=== PATIENT | female | born 1940 | race Caucasian/White ===

== ENCOUNTER → 2018-07-27 11:31 | Outpatient (CLI) | payer MEDICARE, OTHER, SELFPAY ==
--- NOTE | 2018-07-27 | DI.MRI.S_ITS ---
PROCEDURE: MR ANKLE LT WO CON INDICATIONS: CHRONIC LEFT ANKLE PAIN TECHNIQUE: Noncontrast sagittal T1 spin echo and T2 fast spin echo with fat saturation, axial proton density fast spin echo and T2 fast spin echo with fat saturation, coronal T1 spin echo and T2 fast spin echo with fat saturation through the ankle/hindfoot. COMPARISON: None. FINDINGS: Image quality: Excellent. Bones and joints: No bone marrow contusions or fractures. No hindfoot coalitions. No osteochondral injuries of the talar dome. Well-defined plantar calcaneal enthesophyte is seen. 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 No pathologic joint effusions. Medial structures: There is low-grade tenosynovitis involving all 3 flexor tendons mildly fluid distended tendon sheath. No evidence of flexor tendon tear. The posterior tibial neurovascular bundle appears normal within the tarsal tunnel, without extrinsic mass effect. The deep layer (anterior and posterior tibiotalar ligaments) and superficial layer (tibionavicular, tibiospring, and tibiocalcaneal ligaments) of the deltoid ligament appear normal. The spring ligament components (superomedial calcaneonavicular, medioplantar oblique calcaneonavicular, and inferoplantar longitudinal ligaments) are intact. Lateral structures: The anterior talofibular, calcaneofibular, and posterior talofibular ligaments appear intact. More superiorly, the anterior and posterior tibiofibular ligaments appear intact, as is the intermalleolar ligament. The tibiofibular syndesmosis is normal in width at 2 mm or less. There is low-grade tenosynovitis involving the peroneus tendons with small amount of fluid distending tendon sheaths. Adjacent bony peroneal tubercle and retrotrochlear prominence are normal in size. The sinus tarsi demonstrates normal fatty signal, without edema, fibrosis, or cyst formation. Visualized sinus tarsi components (cervical ligament, interosseous talocalcaneal ligament, roots of the inferior extensor retinaculum) appear normal. The calcaneonavicular and calcaneocuboid components of the bifurcate ligament appear intact. The dorsal calcaneocuboid ligament appears intact. Anterior structures: The tibialis anterior, extensor hallucis longus, and extensor digitorum longus tendons appear intact. The dorsal talonavicular ligament appears intact. Posterior and plantar structures: Achilles tendon is intact. Medial and lateral bands of the plantar fascia are of normal thickness. No abductor digiti quinti muscle atrophy to suggest Reyes neuropathy. IMPRESSION: 1. 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 No marrow edema. No fracture or dislocation. No discrete osteochondral lesion. 2. Mild tenosynovitis involving the flexor tendons and peroneus tendons. No evidence of ankle tendon rupture. Ankle ligaments are grossly intact. 3. Well-defined plantar calcaneal enthesophyte. No gross abnormality is seen in plantar aponeurosis. Dictated by: Maurizio Garcia M.D. on 07/27/2018 at 14:51 Approved by: Maurizio Garcia M.D. on 07/27/2018 at 15:01
== END ==
PROVIDERS: Family Provider Family Medicine; PCP Family Medicine; Visit Provider Podiatrist
DX: M25.572 Pain in left ankle and joints of left foot (principal); M19.072 Primary osteoarthritis, left ankle and foot; M65.872 Other synovitis and tenosynovitis, left ankle and foot; G89.29 Other chronic pain
CPT/HCPCS: 73721

== ENCOUNTER → 2019-05-18 07:26 | Outpatient (CLI) | payer MEDICARE, OTHER, SELFPAY ==
--- NOTE | 2019-05-18 08:45 | P.PCN_ITS ---
Cardiac Stress Test Report Referral & Results Date Patient Seen: 05/18/19 Time Patient Seen: 08:30 Requesting provider: Haseeb Bello Indication: Cardiomegaly Rest ECG: Occasional PAC/PVCs Procedure Note: After both written and verbal informed consent the patient had an IV started by the diagnostic imaging RN, and then was hooked up to the radha Letao monitoring system. The Lexiscan material, and then the Cardiolite tracer, were administered sequentially. An additional 3 min was spent monitoring the patient while supine on the gurney. The patient had a normal response to all infused materials. Impression: Successful Thelma protocol. Will await perfusion imaging. Please note: Actual ECG tracings can be found in the PACS system.
--- NOTE | 2019-05-19 18:22 | DI.NM.S_ITS ---
DATE OF SERVICE: 05/18/2019 PROCEDURE PERFORMED: Pharmacologic vasodilator stress and rest myocardial perfusion imaging with gating to assess ejection fraction and regional wall motion. ORDERING PROVIDER: aHseeb Bello DO. INDICATIONS: The patient is an obese, hypertensive, diabetic female with recent chest discomfort. CARDIAC STRESS: Per protocol, 0.4 mg of regadenoson was infused, augmented with handgrip exercise. With this, the patient had a normal hemodynamic response and denied any chest discomfort. Her resting ECG shows a left anterior fascicular block but no significant ST-segment abnormalities and there are no significant ST segment shifts with stress. There were no significant arrhythmias. Per protocol, 23.0 mCi a technetium-99 Myoview was injected and the patient was imaged 15 minutes later using a gated SPECT acquisition protocol. She returned the following day and was reinjected with an additional 29.0 mCi of technetium- 99 Myoview and was imaged 30 minutes later, again using a gated SPECT acquisition protocol. FINDINGS: 1. Raw Data: Image quality is fairly poor with prominent, dense breast attenuation artifact noted that clearly affects the interpretation. Unfortunately, the patient was unable to lay prone to account for breast attenuation. The lung/heart ratio is at the upper limits of normal at 0.42, although visually is less apparent. TID ratio is normal at 0.99. 2. Quantitative Gated SPECT: Post stress ejection fraction is estimated at 59% without any obvious focal wall motion abnormalities, although again, image quality is quite poor. The resting ejection fraction is estimated at 53%, although visually grossly appears to be slightly better than this. Resting end- diastolic volume is mildly elevated at 160 mL. 3. Myocardial Perfusion Imaging: Post stress supine images are of marginal quality but suggest a mild defect in the [id number] anterior wall extending into the anterior septum and apex and includes the distal inferolateral wall. This defect appears to improve on the resting images but does not completely resolve. Again, there are no prone images to assess for attenuation artifact. IMPRESSION: 1. Probable abnormal myocardial perfusion study but with very low specificity because of poor image quality. 2. There is a partially reversible perfusion defect in the distal anterior wall, apex, extending into the distal inferolateral apex. This defect could be consistent with breast attenuation artifact since the raw images show significant breast attenuation. Unfortunately, there are no prone images to assess for this. At face value, this suggests the possibility of ischemia in the distal left anterior descending (LAD) distribution, but again, specificity is low. Clinical correlation is recommended. 3. Normal left ventricular systolic function without any obvious focal wall motion abnormality. Left ventricular volumes may be mildly elevated with a borderline increased lung/heart ratio, although again, image quality reduces the specificity of these findings. 4. No angina or ECG evidence of ischemia with pharmacologic vasodilator stress. Ritesh Sullivan - DENIA/clara/ doc#: [id number]/job#: [id number] dd: 05/19/2019 16:23:00 dt: 05/19/2019 17:57:00 DICTATING MD/COPIES TO: Otto Ortiz MD; Haseeb Bello, COPIES MNE: LADONNA MUNSON
== END ==
PROVIDERS: PCP Family Medicine; Visit Provider Family Medicine
DX: R07.89 Other chest pain (principal); I51.7 Cardiomegaly; E66.9 Obesity, unspecified; E11.9 Type 2 diabetes mellitus without complications; I10 Essential (primary) hypertension
CPT/HCPCS: 78452; 93016; 93017; 93018; A9502; J2785

== ENCOUNTER → 2019-05-19 12:29 | Outpatient (CLI) | payer MEDICARE, OTHER, SELFPAY ==
--- NOTE | 2019-05-19 | DI.ECHO.S_ITS ---
[facility] +---------+ : : [address] : [place] : : : : [id number] : : : : Phone: [phone]+ Echocardiogram Report + + :Name: ELDER FREEDMAN Study Date: 05/19/2019 Height: 64 in : :[facility] Weight: 290 lb : : Gender: Female BSA: 2.3 m2 : :: 1940 Age: 79 yrs BP: 165/98 mmHg: :Reason For Study: CARDIOMEGALY, CHEST PAIN : : Performed By: Jordan Hightower : :Referring: OSMANY GALLAGHER A : + + Interpretation Summary The left ventricle is normal in size. The ejection fraction is estimated to be 45-50%. There appears to be severe hypokinesis of inferior wall, mid to distal inferior septum and mid to distal posterolateral wall. The right ventricle is normal in size and function. There is mild tricuspid regurgitation. Pulmonary artery pressures cannot be estimated because of the lack of a measurable TR jet velocity. The ascending aorta is mildly enlarged. Procedure: A two-dimensional transthoracic echocardiogram with color flow and Doppler was performed. The study quality was technically difficult. There is no prior echocardiogram noted for this patient. A contrast injection of Definity was performed to improve assessment of LV function. The subcostal views were difficult to obtain and are suboptimal in quality. The suprasternal notch views were difficult to obtain and are suboptimal in quality. The patient was in normal sinus rhythm during the exam. Left Ventricle: The left ventricle is normal in size. Left ventricular wall thickness is borderline increased. There is no thrombus. The ejection fraction is estimated to be 45-50%. There appears to be severe hypokinesis of inferior wall, mid to distal inferior septum, mid to distal posterolateral wall. MV E/A: 0.78 Med Peak E' Osmar: 2.6 cm/sec E/E' med: 20.7. Right Ventricle: The right ventricle is normal in size and function. Atria: Both atria are normal in size. A prominent eustachian valve is noted. The interatrial septum is intact with no evidence for an atrial septal defect. Mitral Valve: There is mild mitral annular calcification. The mitral valve chordae are thickened and/or calcified. There is trace mitral regurgitation. Aortic Valve: The aortic valve is trileaflet. The aortic valve is slightly calcified. There is no aortic valve stenosis. No aortic regurgitation is present. Tricuspid Valve: The tricuspid valve is normal. There is mild tricuspid regurgitation. Pulmonary artery pressures cannot be estimated because of the lack of a measurable TR jet velocity. Pulmonic Valve: The pulmonic valve is not well seen, but is grossly normal. There is trace pulmonic regurgitation. Great Vessels: The aortic root is normal size. The ascending aorta is mildly enlarged. The pulmonary artery is normal size. The inferior vena cava was not well visualized. Pericardium/ Pleura There is no pericardial effusion. There is an anterior echo-free space consistent with a fat pad. There is no pleural effusion. MMode/2D Measurements & Calculations LVIDd: 5.3 cm LVOT diam: 2.2 cm LVIDs: 3.7 cm Ao root diam: 3.5 cm FS: 29.8 % Aortic Jxn: 2.5 cm EPSS: 0.99 cm asc Aorta Diam: 3.6 cm IVSd: 1.1 cm LVPWd: 0.96 cm LV mayen. diameter/BSA (cm/m^2): 2.3 LV sys. diameter/BSA (cm/m^2): 1.6 LA dimension: 3.9 cm RA long axis: 4.5 cm LA A2 area: 21.2 cm2 RA area: 15.9 cm2 LA A4 area: 21.8 cm2 RA vol: 47.5 ml LA length (vol): 5.3 cm RA : 20.7 ml/m2 LA vol: 73.5 ml LA vol index: 32.1 ml/m2 RVD1 (basal): 3.3 cm RVD2 (mid): 3.0 cm Doppler Measurements & Calculations Ao V2 max: 142.8 cm/sec LVOT Max Osmar: 87.9 cm/sec Ao V2 mean: 106.8 cm/sec LV V1 max P.1 mmHg Ao max P.2 mmHg LV V1 VTI: 17.8 cm Ao mean P.9 mmHg EDDIE(I,D): 2.4 cm2 Ao V2 VTI: 27.3 cm EDDIE(V,D): 2.3 cm2 sev ratio: 0.65 EDDIE indexed to BSA (cm^2/m^2): 1.1 MV E max osmar: 54.5 cm/sec PA V2 max: 103.0 cm/sec MV A max osmar: 69.8 cm/sec PA V2 mean: 76.2 cm/sec MV E/A: 0.78 PA mean P.5 mmHg Med Peak E' Osmar: 2.6 cm/sec PA pr(Accel): 49.1 mmHg E/E' med: 20.7 PA Accel Time: 0.06 sec Lat Peak E' Osmar: 5.0 cm/sec E/E' lat: 11.0 E/e' average: 15.9 MV dec time: 0.25 sec SV([facility]): 65.9 ml Reading Physician:06:46 PM
== END ==
PROVIDERS: PCP Family Medicine; Visit Provider Family Medicine
DX: I07.1 Rheumatic tricuspid insufficiency (principal); R07.9 Chest pain, unspecified; I77.89 Other specified disorders of arteries and arterioles
CPT/HCPCS: 93306; Q9957

== ENCOUNTER → 2020-10-25 14:00 | Outpatient (CLI) | payer MEDICARE, OTHER, SELFPAY ==
--- NOTE | 2020-10-25 14:02 | DI.MRI.S_ITS ---
PROCEDURE: MR CERVICAL SPINE WO CON INDICATIONS: Spondylolisthesis, cervical region,Unspecified dis TECHNIQUE: Noncontrast sagittal T1 spin echo and T2 fast spin echo, sagittal STIR, foraminal oblique sagittal T2 fast spin echo, and axial gradient echo or T2 fast spin echo through the cervical spine. COMPARISON: None. FINDINGS: Image quality: Excellent. Alignment and Curvature: Loss of normal cervical lordosis. Mild kyphosis at C3-C5. Mild grade 1 anterolisthesis of C3 on C4, and C7 on T1. Bone Marrow: Marrow demonstrates normal overall signal. Mild reactive signal within the endplates adjacent to the C3-C4, C4-C5, C5-C6, C6-C7, and C7-T1 intervertebral discs. Spinal Cord: Visualized spinal cord has normal size and signal. No cerebellar tonsillar herniation. Paraspinous Soft Tissues: No paravertebral masses. Prevertebral soft tissues are normal in thickness. C2-C3: Moderate disc height loss and desiccation. Mild facet and uncovertebral hypertrophy bilaterally. No significant canal stenosis. Mild right greater than left foraminal stenosis. C3-C4: Moderate disc height loss and desiccation. Mild diffuse disc bulge. Moderate facet and uncovertebral hypertrophy, left greater than right. Mild canal stenosis. Severe left and moderate right foraminal stenosis. Left C4 nerve root compression. C4-C5: Moderate disc height loss and desiccation. Moderate diffuse disc bulge. Moderate facet and uncovertebral hypertrophy, right greater than left. There is moderate to severe canal stenosis. Minimal anterior cord flattening. Severe right and moderate left foraminal stenosis. Right C5 nerve root compression. C5-C6: Moderate disc height loss and desiccation. Moderate diffuse disc bulge/osteophyte. Moderate facet and uncovertebral hypertrophy bilaterally. Moderate to severe canal stenosis. Mild cord flattening. Severe left greater than right foraminal stenosis with bilateral C6 nerve root compression. C6-C7: Moderate disc height loss and desiccation. Mild diffuse disc bulge with superimposed left far lateral and posterolateral protrusion. Mild facet and uncovertebral hypertrophy, left greater than right. Moderate canal stenosis. Severe left and mild right foraminal stenosis. Left C7 nerve root compression. C7-T1: Moderate disc height loss and desiccation. Mild diffuse disc bulge. Mild facet and uncovertebral hypertrophy bilaterally. Mild canal stenosis. Moderate left and mild right foraminal stenosis. IMPRESSION: 1. Multilevel degenerative disc and facet disease, as well as uncovertebral hypertrophy. 2. Multilevel canal stenoses, worst at C4-C5 and C5-C6, where there is mild cord flattening. 3. Multilevel foraminal stenoses, worst at C3-C4, C4-C5, C5-C6, and C6-C7, where there is associated intraforaminal nerve root compression. Recommend correlation with clinical symptoms to ascertain relevance of these findings. Dictated by: Bartolo Price M.D. on 10/25/2020 at 15:36 Approved by: Bartolo Price M.D. on 10/25/2020 at 15:44
== END ==
PROVIDERS: PCP Family Medicine; Referring Provider Family Medicine; Visit Provider Family Medicine
DX: M43.12 Spondylolisthesis, cervical region (principal); M50.321 Other cervical disc degeneration at C4-C5 level; M48.02 Spinal stenosis, cervical region; M50.322 Other cervical disc degeneration at C5-C6 level
CPT/HCPCS: 72141

== ENCOUNTER 2021-01-01 17:01 | Emergency (ER) | payer MEDICARE, OTHER, SELFPAY ==
[2021-01-01] VITALS (10 sets, daily range): BP systolic 125–142; BP diastolic 63–100; PULSE 67–75; RESP 16–28; TEMP 36.6; O2SAT 93–96; BMI 48.5
--- NOTE | 2021-01-01 17:12 | PC.NURSE ---
pt arrived via [facility] with c/o CP L mid chest radiating to L lateral chest which started at 0745 this AM after getting out of bed. in triage pain is reproducible to palp and pt winces when lightly touched in the L sternal area. ASA 324 and 1inch NTG paste was initiated in the ambulance in which EMS states dropped pt's BP and the paste was wiped off and arrived with 300mL NS infused. 20G IV in L hand and lab in to draw. RT in for EKG
--- NOTE | 2021-01-01 17:13 | DI.RAD.S_ITS ---
PROCEDURE: XR CHEST 1V INDICATIONS: chest pain TECHNIQUE: One view of the chest was acquired. COMPARISON: None. FINDINGS: Surgical changes and devices: None. Lungs and pleura: Lungs are clear. No pleural effusions or pneumothorax. Mediastinum: Mediastinal contours appear normal. Heart size is normal. Bones and chest wall: No suspicious bony lesions. Overlying soft tissues appear unremarkable. IMPRESSION: No acute cardiopulmonary disease process. Dictated by: Meron Weiner MD, PhD on 01/01/2021 at 17:30 Approved by: Meron Weiner MD, PhD on 01/01/2021 at 17:30
[2021-01-01 17:28] LABS: Add Manual Diff / Slide Review NO; Basophils Absolute Auto 0 /uL (0-100); Basophils Percent Auto 0.6 % (0-2); Eosinophils Absolute Auto 0 /uL (0-450); Eosinophils Percent Auto 0.8 % (2-4); Hematocrit 37.5 % (36-46); Hemoglobin 12.5 g/dL (12.0-16.0); Lymphocytes Absolute Auto 2000 /uL (1100-4500); Lymphocytes Percent Auto 36.4 % (25-40); Mean Corpuscular HGB Conc 33.4 % (30-36); Mean Corpuscular Hemoglobin 33.2 PG (26-34); Mean Corpuscular Volume 99.3 fL (80-100); Monocytes Absolute Auto 500 /uL (0-900); Neutrophils Absolute Auto 2900 /uL (1500-7000); Neutrophils Percent Auto 53.2 % (50-75); Platelet Count 196 X10^3/uL (150-400); Red Blood Cell Count 3.78 X10^6/uL (4.0-5.2); Red Cell Distribution Width 14.5 % (11.6-14.8); White Blood Cell Count 5.4 X10^3/uL (4.5-11.0)
--- NOTE | 2021-01-01 17:34 | ED_ITS ---
HPI - Chest Pain General Chief Complaint: Chest Pain Stated Complaint: Chest Pain,Left Side Time Seen by Provider: 01/01/21 17:11 Source: patient Mode of arrival: EMS Limitations: no limitations History of Present Illness HPI narrative: Patient is a 80-year-old female who was sent to the emergency department for evaluation of chest discomfort. States she woke up this morning and reached over the bed and had a sudden onset of discomfort in the left side of her chest. It is worse when she touches the left side of her chest somewhat worse when she moves her arm. She went to the walk-in clinic. 1 in of nitropa pal was placed on her chest which did not change any the discomfort and also caused her to be hypotensive. Because of that she was sent here to the emergency department for evaluation. She states she has had constant pain since this morning. No shortness of breath. Does have a slight headache because of the nitro. Related Data Home Medications Medication Instructions Recorded Confirmed ACETAMINOPHEN (TYLENOL ARTHRITIS) 2 tabs PO BID #0 05/13/12 CPAP: CPAP/PAP Nasal Mask HS #0 05/13/12 Fish Oil (#OMEGA-3 FISH OIL) 2 tabs PO HS #0 05/13/12 albuterol sulfate [Ventolin HFA] 1 - 2 puff INH Q4HP #0 05/13/12 clobetasol-emollient 0.05 % TOPICAL PRN PRN #0 05/13/12 latanoprost [Xalatan] 1 drp OPHTH HS #0 05/13/12 MULTIVITAMIN (Fruity Vitamin) 1 ctb PO QDAY #0 05/14/12 CHOLECALCIFEROL (VITAMIN D3) 3,000 iu PO QDAY #0 10/09/12 (VITAMIN-D) Previous Rx's Medication Instructions Recorded Fluticasone Propionate (FLONASE) 2 spray INTRANASAL QDAYP 90 Days #0 06/29/12 Allergies Allergy/AdvReac Type Severity Reaction Status Date / Time beclomethasone Allergy Mild RASH Unverified 11/19/17 11:46 codeine AdvReac Intermediate HALLUCINATI Unverified 11/19/17 11:46 ON colchicine [COLCHICINE] AdvReac Intermediate DIARRHEA Unverified 11/19/17 11:46 morphine AdvReac Intermediate HALLUCINATI Unverified 11/19/17 11:46 ONS oxycodone AdvReac Intermediate HALLUCINATI Unverified 11/19/17 11:46 ONS hydrocodone AdvReac Mild NAUSEA, Unverified 11/19/17 11:46 DIZZY pentazocine AdvReac Mild ALTERED Unverified 11/19/17 11:46 MENTAL STATUS Sulfa (Sulfonamide AdvReac Mild HALLUCINATI Unverified 11/19/17 11:46 Antibiotics) ON Review of Systems Constitutional Constitutional: Denies fever(s) and Reports headache(s) ENT Ears, Nose, Mouth, and Throat: Denies vertigo, Denies dizziness and Reports headache(s) Cardiovascular Cardiovascular: Reports chest pain, Denies rapid heart rate and Denies dyspnea Respiratory Respiratory: Denies dyspnea Gastrointestinal Gastrointestinal: Denies abdominal pain, Denies nausea and Denies vomiting Musculoskeletal Musculoskeletal: Denies arthralgias, Denies back pain and Denies myalgias Integumentary/Breasts Skin/Breast: Denies rash Neurologic Neurologic: Denies vertigo, Denies dizziness and Reports headache(s) Hematologic/Lymphatic On Anticoagulants: No Allergic/Immunologic Allergic/Immunologic: Reports system reviewed and no additional complaints, except as documented Patient History Medical History Epigastric pain Pancreatitis, acute Social History lives independently: Yes Exam Initial Vital Signs Initial Vital Signs: Vital Signs Pulse Rate 75 01/01/21 17:07 Respiratory Rate 27 H 01/01/21 17:07 Pulse Oximetry 95 01/01/21 17:07 Const General: cooperative and healthy appearing Limitations: mental status not altered [facility] Head: normal to inspection and normocephalic Chest Chest: No crepitus and tenderness (Left anterior chest wall.) Resp Effort & Inspection: normal respiratory effort Auscultation: clear to auscultation bilaterally Cardio Rate: regular rate Rhythm: regular rhythm GI Inspection: non-distended Palpation: soft and No tender Skin Lesions: no lesions Rashes: no rashes Neuro General: patient alert and patient awake Cognition: normal cognition Speech: speech normal Extrem General: normal to inspection and capillary refill normal Psych Appearance: grossly normal and well kempt Course Orders Ordered: ED Orders 01/01/21 17:10 EKG-12 Lead Stat 01/01/21 17:13 XR chest 1V Stat 01/01/21 17:16 Complete Blood Count AUTO DIFF Stat Comprehensive Metabolic Panel Stat Lipase Stat Partial Thromboplastin Time Stat Prothrombin Time INR Stat Troponin & CK Cardiac Panel Stat Vital Signs Vital signs: Vital Signs - 8 hr 01/01/21 17:07 01/01/21 17:08 Temperature 97.8 F Pulse Rate 75 70 Respiratory Rate 27 H 28 H Blood Pressure 134/93 H Pulse Oximetry 95 95 MDM - Chest Pain Lab Data Attestation: I reviewed the patient's lab results. Result diagrams: 01/01/21 17:16 01/01/21 17:16 Labs: Lab Results 01/01/21 01/01/21 01/01/21 Range/Units 17:16 17:16 17:16 WBC 5.4 (4.5-11.0) X10^3/uL RBC 3.78 L (4.0-5.2) X10^6/uL Hgb 12.5 (12.0-16.0) g/dL Hct 37.5 (36-46) % MCV 99.3 (80-100) fL MCH 33.2 (26-34) PG MCHC 33.4 (30-36) % RDW 14.5 (11.6-14.8) % Plt Count 196 (150-400) X10^3/uL Neut % (Auto) 53.2 (50-75) % Lymph % (Auto) 36.4 (25-40) % [place] % (Auto) 9.0 (3-14) % Eos % (Auto) 0.8 L (2-4) % Baso % (Auto) 0.6 (0-2) % Neut # (Auto) 2900 (4256-4817) /uL Lymph # (Auto) 2000 (8133-7243) /uL [place] # (Auto) 500 (0-900) /uL Eos # (Auto) 0 (0-450) /uL Baso # (Auto) 0 (0-100) /uL PT 10.8 (10.1-12.7) SECONDS INR 1.0 (0.9-1.3) APTT 37 H (26.4-36.2) SECONDS Sodium 137 (137-145) mmol/L Potassium 3.8 (3.4-5.1) mmol/L Chloride 102 (98-107) mmol/L Carbon Dioxide 26 (22-32) mmol/L BUN 28 H (7-17) mg/dL Creatinine 0.84 (0.52-1.04) mg/dL Estimated GFR > 60.0 (>60) mL/min BUN/Creatinine Ratio 33.3 H (6-22) Glucose 167 H (80-110) mg/dL Calcium 9.3 (8.4-10.2) mg/dL Total Bilirubin 0.3 (0.2-1.3) mg/dL AST 25 (14-36) IU/L ALT 18 (<35) IU/L Alkaline Phosphatase 97 (38-126) U/L Total Creatine Kinase 64 (30-135) U/L CK-MB (CK-2) TNP CK-MB (CK-2) Rel Index TNP Troponin I < 0.012 (0.01-0.034) ng/mL Total Protein 6.7 (6.3-8.2) g/dL Albumin 4.1 (3.5-5.0) g/dL Globulin 2.6 (1.7-4.1) g/dL Albumin/Globulin Ratio 1.6 (1.0-2.8) Lipase 205 (23-300) U/L Imaging Data Chest x-ray: Radiologist's Impression: [address] [id number] ReportSigned Patient: Ritesh Sullivan JMR#: [id number]: 1940cct:[id number]/Sex: 80 / FDate of Service: 01/01/21Loc: EDAccession Number: [id number] Procedure: XR chest 1V Ordering Provider: Avi Arriaza D.O. PROCEDURE: XR CHEST 1V INDICATIONS: chest pain TECHNIQUE: One view of the chest was acquired. COMPARISON: None. FINDINGS: Surgical changes and devices: None. Lungs and pleura: Lungs are clear. No pleural effusions or pneumothorax. Mediastinum: Mediastinal contours appear normal. Heart size is normal. Bones and chest wall: No suspicious bony lesions. Overlying soft tissues appear unremarkable. IMPRESSION: No acute cardiopulmonary disease process. Dictated by: Meron Weiner MD, PhD on 01/01/2021 at 17:30 Approved by: Meron Weiner MD, PhD on 01/01/2021 at 17:30 ECG Data Attestation: I personally reviewed and interpreted this ECG as follows: Prior ECG tracings: available for review Interpretation: Sinus rhythm Ventricular rate is 71 Left axis deviation LVH MDM Narrative Medical decision making narrative: Patient is here for reproducible left-sided anterior wall chest discomfort. She states that with palpating the left side of her chest it reproduces the pain that she had this morning and for which she went to be evaluated for today. Her troponin is negative. This is greater than 6 hours after the onset of her discomfort. Chest x-ray is unremarkable. I do have a high suspicion that her symptoms today are musculoskeletal and not ACS in origin. She has had problems with ?inflammation of my sternum ?in the past. Feel we can hold on further workup for now and have patient follow-up. She expressed understanding and agreement. Discharge Plan Departure Patient Disposition: Home Clinical Impression: Acute chest wall pain Instructions: DI for Atypical Chest Pain Activity Restrictions/Additional Instructions: I feel that since we can reproduce the discomfort that brought she went to be evaluated today by touching the left side of your chest that this is unlikely your heart. Your labs are also reassuring. Recommend you contact your primary provider for follow-up in please return to the emergency department at any point for new or worsening symptoms Prescriptions: No Action ACETAMINOPHEN (TYLENOL ARTHRITIS) 2 tabs PO BID Qty: 0 RF: 0 clobetasol-emollient 0.05 % cream 0.05 % Topical PRN PRNQty: 0 RF: 0 CPAP: CPAP/PAP Nasal Mask HS Qty: 0 RF: 0 Fish Oil (#OMEGA-3 FISH OIL) 2 tabs PO HS Qty: 0 RF: 0 albuterol sulfate [Ventolin HFA] 90 MCG/PUFF HFA aerosol inhaler 1 - 2 puff INH Q4HP Qty: 0 RF: 0 latanoprost [Xalatan] 0.005 % drops 1 drp OPHTH HS Qty: 0 RF: 0 MULTIVITAMIN (Fruity Vitamin) 1 ctb PO QDAY Qty: 0 RF: 0 Fluticasone Propionate (FLONASE) 2 spray Intranasal QDAYP 90 Days Qty: 0 RF: 1 CHOLECALCIFEROL (VITAMIN D3) (VITAMIN-D) 3,000 iu PO QDAY Qty: 0 RF: 0 Referrals: Haseeb Bello DO [Primary Care Provider] -
[2021-01-01 17:39] LABS: Prothrombin Time 10.8 SECONDS (10.1-12.7)
[2021-01-01 17:42] LABS: PTT Partial Thromboplastin Tim 37 SECONDS (26.4-36.2)
[2021-01-01 17:44] LABS: Alanine Aminotransferase 18 IU/L (<35); Albumin 4.1 g/dL (3.5-5.0); Albumin Globulin Ratio 1.6 (1.0-2.8); Alkaline Phosphatase 97 U/L (38-126); Aspartate Aminotransferase 25 IU/L (14-36); BUN Creatinine Ratio 33.3 (6-22); Bilirubin Total 0.3 mg/dL (0.2-1.3); Blood Urea Nitrogen 28 mg/dL (7-17); Calcium 9.3 mg/dL (8.4-10.2); Carbon Dioxide 26 mmol/L (22-32); Chloride 102 mmol/L (98-107); Creatine Kinase 64 U/L (30-135); Estimated Glomerular Filt Rate > 60.0 mL/min (>60); Globulin 2.6 g/dL (1.7-4.1); Glucose 167 mg/dL (80-110); HEMOLYSIS < 15 (0-50); Lipase 205 U/L (23-300); Potassium 3.8 mmol/L (3.4-5.1); Sodium 137 mmol/L (137-145); Total Protein 6.7 g/dL (6.3-8.2)
[2021-01-01 17:56] LABS: Troponin I < 0.012 ng/mL (0.01-0.034)
== END 2021-01-01 19:37 | disposition home or self-care (01) ==
PROVIDERS: Emergency Provider Emergency Medicine; PCP Family Medicine
DX: R07.89 Other chest pain (principal); R51.9 Headache, unspecified
CPT/HCPCS: 36415; 71045; 80053; 82550; 83690; 84484; 85025; 85610; 85730; 93005; 99283; 99284

== ENCOUNTER → 2021-01-10 10:19 | Outpatient (CLI) | payer MEDICARE, OTHER, SELFPAY ==
[2021-01-10 11:02] LABS: Add Manual Diff / Slide Review NO; Basophils Absolute Auto 0 /uL (0-100); Basophils Percent Auto 0.6 % (0-2); Eosinophils Absolute Auto 0 /uL (0-450); Eosinophils Percent Auto 0.8 % (2-4); Hematocrit 39.2 % (36-46); Hemoglobin 13.1 g/dL (12.0-16.0); Lymphocytes Absolute Auto 1700 /uL (1100-4500); Lymphocytes Percent Auto 36.1 % (25-40); Mean Corpuscular HGB Conc 33.5 % (30-36); Mean Corpuscular Hemoglobin 33.7 PG (26-34); Mean Corpuscular Volume 100.7 fL (80-100); Monocytes Absolute Auto 400 /uL (0-900); Monocytes Percent Auto 7.8 % (3-14); Neutrophils Absolute Auto 2600 /uL (1500-7000); Neutrophils Percent Auto 54.7 % (50-75); Platelet Count 183 X10^3/uL (150-400); Red Blood Cell Count 3.89 X10^6/uL (4.0-5.2); Red Cell Distribution Width 14.5 % (11.6-14.8); White Blood Cell Count 4.8 X10^3/uL (4.5-11.0)
[2021-01-10 11:12] LABS: Hemoglobin A1C% w Est Avg Glu 9.2 % (4.0-6.0)
[2021-01-10 11:28] LABS: Blood Urea Nitrogen 24 mg/dL (7-17)
== END ==
PROVIDERS: PCP Family Medicine; Referring Provider Orthopaedic Surgery; Visit Provider Orthopaedic Surgery
DX: Z01.818 Encounter for other preprocedural examination (principal); R73.9 Hyperglycemia, unspecified; Z01.812 Encounter for preprocedural laboratory examination; R79.89 Other specified abnormal findings of blood chemistry
CPT/HCPCS: 36415; 83036; 84520; 85025; 93005

== ENCOUNTER → 2021-02-08 09:17 | Outpatient (CLI) | payer MEDICARE, OTHER, SELFPAY ==
[2021-02-09 05:25] LABS: Fructosamine 275 umol/L (0-285)
== END ==
PROVIDERS: PCP Family Medicine; Referring Provider Orthopaedic Surgery; Visit Provider Orthopaedic Surgery
DX: R73.9 Hyperglycemia, unspecified (principal)
CPT/HCPCS: 36415; 82985

== ENCOUNTER 2021-06-28 12:14 | Emergency (ER) | payer MEDICARE, OTHER, SELFPAY ==
[2021-06-28 12:30] VITALS: BP 196/82; PULSE 73; RESP 16; TEMP 36.6; O2SAT 99; BMI 48.0
--- NOTE | 2021-06-28 12:44 | DI.RAD.S_ITS ---
PROCEDURE: XR WRIST LT MIN 3V INDICATIONS: fall TECHNIQUE: 3 views of the wrist were acquired. COMPARISON: [facility], CR, XR FOREARM LT 2V, 06/28/2021, 12:43. FINDINGS: Bones: Comminuted radial metaphyseal fracture with intra-articular involvement and impaction. A tiny ossicle versus ulnar styloid fracture. No suspicious bony lesions. Degenerative joint disease, severe at the 1st carpometacarpal joint and triscaphe joint, moderate at the radiocarpal joint. Soft tissues: No suspicious soft tissue calcifications. Soft tissue swelling. IMPRESSION: 1. Comminuted radial metaphyseal fracture. 2. A tiny ossicle versus ulnar styloid fracture. Dictated by: Felipe Valiente M.D. on 06/28/2021 at 14:50 Approved by: Felipe Valiente M.D. on 06/28/2021 at 15:07
--- NOTE | 2021-06-28 12:44 | DI.RAD.S_ITS ---
PROCEDURE: XR FOREARM LT 2V INDICATIONS: fall TECHNIQUE: 2 views of the forearm were acquired. COMPARISON: [facility], CR, XR WRIST LT MIN 3V, 06/28/2021, 12:43. FINDINGS: Bones: There is a comminuted radial metaphyseal fracture with intra-articular involvement and mild impaction and displacement. No dislocations. No suspicious bony lesions. Soft tissues: No suspicious soft tissue calcifications or masses. IMPRESSION: Distal radial metaphyseal fracture. Dictated by: Felipe Valiente M.D. on 06/28/2021 at 14:01 Approved by: Felipe Valiente M.D. on 06/28/2021 at 14:05
--- NOTE | 2021-06-28 12:47 | DI.CT.S_ITS ---
PROCEDURE: CT HEAD/BRAIN WO CON INDICATIONS: fall TECHNIQUE: Noncontrast 4.5 mm thick angled axial sections acquired from the foramen magnum to the vertex, with coronal and sagittal reformats. For radiation dose reduction, the following was used: automated exposure control, adjustment of mA and/or kV according to patient size. COMPARISON: None. FINDINGS: Image quality: Excellent. CSF spaces: Basal cisterns are patent. No extra-axial fluid collections. The ventricles are symmetric in size and shape. Brain: No intracranial bleeds or masses. There is mild cerebral volume loss for age, with resultant ventricular and sulcal prominence. There are moderate periventricular and deep white matter chronic small vessel ischemic changes. There is intracranial internal carotid artery atherosclerosis. Skull and face: Calvarium and visualized facial bones appear intact, without suspicious lesions. Sinuses: There is a mucous retention cyst or polyp in the left maxillary sinus. The mastoids are clear. IMPRESSION: 1. No acute intracranial abnormalities. 2. Cerebral volume loss and chronic microvascular ischemic changes. 3. A mucous retention cyst or polyp in the left maxillary sinus. Dictated by: Felipe Valiente M.D. on 06/28/2021 at 13:31 Approved by: Felipe Valiente M.D. on 06/28/2021 at 13:33
--- NOTE | 2021-06-28 12:47 | DI.CT.S_ITS ---
PROCEDURE: CT CERVICAL SPINE WO CON INDICATIONS: fall TECHNIQUE: Noncontrast 3 mm thick sections acquired from the skull base to the T4 level. Sagittal and coronal reformats were then constructed. For radiation dose reduction, the following was used: automated exposure control, adjustment of mA and/or kV according to patient size. COMPARISON: [facility], CT, SINUS SCREEN WO CONTRAST, 11/16/2012, 11:14. [facility], CT, CT HEAD/BRAIN WO CON, 06/28/2021, 12:54. [facility], MR, MR CERVICAL SPINE WO CON, 10/25/2020, 14:07. FINDINGS: Image quality: Excellent. Bones: No fractures or dislocations. Degenerative disc disease is present, severe at C4-C5, C5-C6 and C6-C7. Bilateral facet arthropathy, severe at C2-C3 and C4-C5 on the right, and C3-C4 on the left. There is old left ventricular condylar fracture with deformity. Visualized superior ribs are intact. Soft tissues: Prevertebral soft tissues are normal in thickness. No paravertebral hematomas. No apical pneumothoraces. IMPRESSION: 1. No cervical spine fracture. 2. Severe degenerative disc and facet disease. 3. Old left mandibular condylar fracture with deformity. Dictated by: Felipe Valiente M.D. on 06/28/2021 at 13:33 Approved by: Felipe Valiente M.D. on 06/28/2021 at 13:45
--- NOTE | 2021-06-28 12:47 | DI.RAD.S_ITS ---
PROCEDURE: XR SHOULDER RT MIN 2V INDICATIONS: fall TECHNIQUE: Full views of the shoulder were acquired. COMPARISON: None. FINDINGS: Bones: No definitive fractures or dislocations. No suspicious bony lesions. Moderate degenerative joint disease. Visualized ribs appear intact. Soft tissues: No suspicious soft tissue calcifications. IMPRESSION: No definitive fractures. Because of osteopenia and suboptimal position, the glenohumeral joint is suboptimally visualized. If clinical suspicion is high, recommend CT for follow-up evaluation. Dictated by: Felipe Valiente M.D. on 06/28/2021 at 15:07 Approved by: Felipe Valiente M.D. on 06/28/2021 at 15:10
--- NOTE | 2021-06-28 15:54 | ED_ITS ---
HPI - Fall General Chief Complaint: Fall Stated Complaint: FALL LEFT ARM HIT HEAD Time Seen by Provider: 06/28/21 12:37 Source: patient and family Mode of arrival: Ambulatory History of Present Illness HPI Narrative: Patient is a linda 81-year-old female who is not on any anti-platelet or anti coagulation presenting after mechanical fall. She said that she was going on to a broad which was unfamiliar to her she had both hands filled with bags she did not see a drug she tripped and fell and landed on her face. There is no loss of consciousness she said she a short because she was cursing. She complains of right shoulder pain left wrist pain. She has no nausea or vomiting. EMS was initially called however she elected to be transported by POV. He states it is only pain medication that works for her is tramadol. Related Data Home Medications Medication Instructions Recorded Confirmed ACETAMINOPHEN (TYLENOL ARTHRITIS) 2 tabs PO BID #0 05/13/12 CPAP: CPAP/PAP Nasal Mask HS #0 05/13/12 Fish Oil (#OMEGA-3 FISH OIL) 2 tabs PO HS #0 05/13/12 albuterol sulfate 90 mcg/actuation 1 - 2 puff INH Q4HP #0 05/13/12 aerosol inhaler (Ventolin HFA) clobetasol-emollient 0.05 % 0.05 % TOPICAL PRN PRN #0 05/13/12 topical cream latanoprost 0.005 % eye drops 1 drp OPHTH HS #0 05/13/12 (Xalatan) MULTIVITAMIN (Fruity Vitamin) 1 ctb PO QDAY #0 05/14/12 CHOLECALCIFEROL (VITAMIN D3) 3,000 iu PO QDAY #0 10/09/12 (VITAMIN-D) Previous Rx's Medication Instructions Recorded Fluticasone Propionate (FLONASE) 2 spray INTRANASAL QDAYP 90 Days #0 06/29/12 tramadol 100 mg tablet 100 mg PO Q6H PRN #14 tab 06/28/21 Allergies Allergy/AdvReac Type Severity Reaction Status Date / Time beclomethasone Allergy Mild RASH Unverified 06/28/21 12:50 codeine AdvReac Intermediate HALLUCINATI Unverified 06/28/21 12:50 ON colchicine [COLCHICINE] AdvReac Intermediate DIARRHEA Unverified 06/28/21 12:50 morphine AdvReac Intermediate HALLUCINATI Unverified 06/28/21 12:50 ONS oxycodone AdvReac Intermediate HALLUCINATI Unverified 06/28/21 12:50 ONS hydrocodone AdvReac Mild NAUSEA, Unverified 06/28/21 12:50 DIZZY pentazocine AdvReac Mild ALTERED Unverified 06/28/21 12:50 MENTAL STATUS Sulfa (Sulfonamide AdvReac Mild HALLUCINATI Unverified 06/28/21 12:50 Antibiotics) ON Review of Systems Review of Systems Narrative: GENERAL: Denies chills, fatigue, malaise, fever, sweats, travel HEENT: Denies sinus pain, ear pain, sore throat, difficulty swallowing, neck pain RESPIRATORY: Denies dyspnea, cough, wheezing, hemoptysis, sputum. CARDIOVASCULAR: Denies chest pain, palpitations, orthopnea, edema GASTROINTESTINAL: Denies nausea, vomiting, abdominal pain, diarrhea, constipation, melena. : Denies dysuria, frequency, incontinence, hematuria, urinary retention, flank pain. MUSCULOSKELETAL: See HPI SKIN: Facial abrasions NEUROLOGIC: Denies weakness, dizziness, headache, numbness, change in speech, confusion PSYCHIATRIC: No concerning psychosocial issues. 12 point review of systems is negative except for those stated above and HPI Patient History Medical History Epigastric pain Pancreatitis, acute Social History lives independently: Yes Smoking Status: Never smoker Smoking Status: Never smoker alcohol intake frequency: 0-2 drinks per day Substance Use Type: does not use Exam Initial Vital Signs Initial Vital Signs: Vital Signs Temperature 97.8 F 06/28/21 12:30 Pulse Rate 73 06/28/21 12:30 Respiratory Rate 16 06/28/21 12:30 Blood Pressure 196/82 H 06/28/21 12:30 Pulse Oximetry 99 06/28/21 12:30 GENERAL: Alert 81-year-old and in no acute distress. HEENT: Head forehead contusion,EOMI, pupils reactive, face symmetric, moist mucous membranes NECK: No vertebral tenderness or step-offs CARDIOVASCULAR: Regular rate and rhythm without murmurs, rubs or gallops. RESPIRATORY: Breath sounds equal bilaterally, no wheezes rales or rhonchi. ABDOMEN: Soft, nontender. Normoactive bowel sounds all 4 quadrants. No guarding or rebound. EXTREMITIES: Normal range of motion, no clubbing or edema. Neurovascularly intact Tender right shoulder no clavicle step-offs sensation deltoid intact distal radial pulse intact Left wrist pain and deformity distal radial pulse intact cap refill less than 2 seconds. No pain in elbow or shoulder NEUROLOGICAL: Alert and oriented x4.Normal gait and speech. SKIN: Forehead contusion, nasal abrasion Procedures Orthopedic Splinting/Casting Injury #1: Upper Extremity Injury Location: wrist Upper Extremity Immobilizer: sling/shoulder immobilizer and sugar tong splint Post splinting neuro exam: intact Post splinting vascular exam: intact Course Orders Ordered: ED Orders 06/28/21 12:44 XR forearm LT 2V Stat XR wrist LT min 3V Stat 06/28/21 12:47 CT cervical spine wo con Stat CT head/brain wo con Stat XR shoulder RT min 2V Stat Discontinued Medications Tramadol HCl (Tramadol 50 Mg Tablet) 100 mg PO NOW ONE Stop: 06/28/21 16:00 Last Admin: 06/28/21 16:27 Dose: 100 mg Documented by: ADAM Vital Signs Vital signs: Vital Signs - 8 hr 06/28/21 12:30 06/28/21 16:59 Temperature 97.8 F Pulse Rate 73 62 Respiratory Rate 16 20 Blood Pressure 196/82 H 130/58 L Pulse Oximetry 99 98 MDM - Fall Imaging Data CT scan - head: Radiologist's Impression: ADDENDUMThis report includes an Addendum and supersedes previous reports for this exam. ? ? ? PROCEDURE:? CT HEAD/BRAIN WO CON ? INDICATIONS:? fall ? TECHNIQUE:? Noncontrast 4.5 mm thick angled axial sections acquired from the foramen magnum to the vertex, with coronal and sagittal reformats.? For radiation dose reduction, the following was used:? automated exposure control, adjustment of mA and/or kV according to patient size.? ? COMPARISON:? None. ? FINDINGS:? Image quality:? Excellent.? ? CSF spaces:? Basal cisterns are patent.? No extra-axial fluid collections.? The ventricles are symmetric in size and shape.? ? Brain:? No intracranial bleeds or masses.? There is mild cerebral volume loss for age, with resultant ventricular and sulcal prominence.? There are moderate periventricular and deep white matter chronic small vessel ischemic changes.? There is intracranial internal carotid artery atherosclerosis.? ? Skull and face:? Calvarium and visualized facial bones appear intact, without suspicious lesions.? ? Sinuses:? There is a mucous retention cyst or polyp in the left maxillary sinus.? The mastoids are clear.? ? IMPRESSION:? ? 1. No acute intracranial abnormalities. 2. Cerebral volume loss and chronic microvascular ischemic changes. 3. A mucous retention cyst or polyp in the left maxillary sinus. ? ? Dictated by: Felipe Valiente M.D. on 06/28/2021 at 13:31 ? ? Approved by: Felipe Valiente M.D. on 06/28/2021 at 13:33 ? ? ? ADDENDUM:? Note is made of old left mandibular condylar fracture with deformity. CT - cervical spine: Radiologist's Impression: PROCEDURE:? CT CERVICAL SPINE WO CON ? INDICATIONS:? fall ? TECHNIQUE:? Noncontrast 3 mm thick sections acquired from the skull base to the T4 level.? Sagittal and coronal reformats were then constructed.? For radiation dose reduction, the following was used:? automated exposure control, adjustment of mA and/or kV according to patient size.? ? COMPARISON:? [facility], CT, SINUS SCREEN WO CONTRAST, 11/16/2012, 11:14.? [facility], CT, CT HEAD/BRAIN WO CON, 06/28/2021, 12:54.? [facility], MR, MR CERVICAL SPINE WO CON, 10/25/2020, 14:07. ? FINDINGS:? Image quality:? Excellent.? ? Bones:? No fractures or dislocations.? Degenerative disc disease is present, severe at C4-C5, C5-C6 and C6-C7.? Bilateral facet arthropathy, severe at C2-C3 and C4-C5 on the right, and C3-C4 on the left.? There is old left ventricular condylar fracture with deformity. ? Visualized superior ribs are intact. ? Soft tissues:? Prevertebral soft tissues are normal in thickness.? No paravertebral hematomas.? No apical pneumothoraces.? ? ? IMPRESSION:? ? 1. No cervical spine fracture. 2. Severe degenerative disc and facet disease. 3. Old left mandibular condylar fracture with deformity.? Dictated by: Felipe Valiente M.D. on 06/28/2021 at 13:33 ? ? Extremity x-ray #1: Radiologist's Impression: PROCEDURE:? XR FOREARM LT 2V ? INDICATIONS:? fall ? TECHNIQUE:? 2 views of the forearm were acquired.? ? COMPARISON:? [facility], , XR WRIST LT MIN 3V, 06/28/2021, 12:43. ? FINDINGS:? ? Bones:? There is a comminuted radial metaphyseal fracture with intra-articular involvement and mild impaction and displacement.? No dislocations.? No s uspicious bony lesions.? ? Soft tissues:? No suspicious soft tissue calcifications or masses.? ? ? IMPRESSION:? Distal radial metaphyseal fracture. ? ? ? Dictated by: Felipe Valiente M.D. on 06/28/2021 at 14:01 ?? Extremity x-ray #2: Radiologist's Impression: PROCEDURE:? XR WRIST LT MIN 3V ? INDICATIONS: fall ? TECHNIQUE:? 3 views of the wrist were acquired.? ? COMPARISON:? [facility], , XR FOREARM LT 2V, 06/28/2021, 12:43. ? FINDINGS:? ? Bones:? Comminuted radial metaphyseal fracture with intra-articular involvement and impaction.? A tiny ossicle versus ulnar styloid fracture.? No suspicious bony lesions.? Degenerative joint disease, severe at the 1st carpometacarpal joint and triscaphe joint, moderate at the radiocarpal joint. ? Soft tissues:? No suspicious soft tissue calcifications.? Soft tissue swelling. ? IMPRESSION:? ? 1. Comminuted radial metaphyseal fracture. 2. A tiny ossicle versus ulnar styloid fracture.? Dictated by: Felipe Valiente M.D. on 06/28/2021 at 14:50 ? ? Approved by: Felipe Valiente M.D. on 06/28/2021 at 15:07 ? Extremity x-ray #3: Radiologist's Impression: PROCEDURE:? XR SHOULDER RT MIN 2V ? INDICATIONS:? fall ? TECHNIQUE:? Full views of the shoulder were acquired.? ? COMPARISON:? None. ? FINDINGS:? ? Bones:? No definitive fractures or dislocations.? No suspicious bony lesions.? Moderate degenerative joint disease.? Visualized ribs appear intact.? ? Soft tissues:? No suspicious soft tissue calcifications.? ? IMPRESSION:? No definitive fractures.? Because of osteopenia and suboptimal position, the glenohumeral joint is suboptimally visualized.? If clinical suspicion is high, recommend CT for follow-up evaluation. ? ? Dictated by: Felipe Valiente M.D. on 06/28/2021 at 15:07 ? ? MDM Narrative Medical decision making narrative: Patient had mechanical fall is found to distal radial fracture. She is splinted it is still painful but neurovascularly she is intact. She is given tramadol she has an Orthopedic Dr. Man she would like to see a recommend that she follow-up with her. All her imaging negative. Daughter is with her and will help take care of her. Discharge Plan Departure Patient Disposition: Home Clinical Impression: Fracture of right wrist, Closed head injury Instructions: Wrist Fracture, Closed Head Injury Activity Restrictions/Additional Instructions: *You have been diagnosed with left wrist fracture and closed head injury *What to do: Keep wrist and splint at all times. Elevate, ice *Continue to take medications as directed Tramadol 1-2 tablets every 6 hours if needed for [id number] pain *Follow up with your primary care provider in 2-3 days Please call orthopedics tomorrow to schedule follow-up appointment *Return to ER if you should have increasing pain numbness tingling or weakness, persistent vomiting or any new, worsening or concerning symptoms Prescriptions: New tramadol 100 mg tablet 100 mg PO Q6H PRN (Reason: pain) Qty: 14 0RF No Action ACETAMINOPHEN (TYLENOL ARTHRITIS) 2 tabs PO BID Qty: 0 0RF clobetasol-emollient 0.05 % cream 0.05 % Topical PRN PRNQty: 0 0RF CPAP: CPAP/PAP Nasal Mask HS Qty: 0 0RF Fish Oil (#OMEGA-3 FISH OIL) 2 tabs PO HS Qty: 0 0RF albuterol sulfate [Ventolin HFA] 90 MCG/PUFF HFA aerosol inhaler 1 - 2 puff INH Q4HP Qty: 0 0RF latanoprost [Xalatan] 0.005 % drops 1 drp OPHTH HS Qty: 0 0RF MULTIVITAMIN (Fruity Vitamin) 1 ctb PO QDAY Qty: 0 0RF Fluticasone Propionate (FLONASE) 2 spray Intranasal QDAYP 90 Days Qty: 0 1RF CHOLECALCIFEROL (VITAMIN D3) (VITAMIN-D) 3,000 iu PO QDAY Qty: 0 0RF Referrals: Haseeb Bello DO [Primary Care Provider] -
[2021-06-28] MEDS: TRAMADOL 50 MG TABLET 100 MG PO (16:27)
[2021-06-28 16:59] VITALS: BP 130/58; PULSE 62; RESP 20; O2SAT 98
== END 2021-06-28 17:38 | disposition home or self-care (01) ==
PROVIDERS: Emergency Provider Emergency Medicine; PCP Family Medicine
DX: S52.501A Unspecified fracture of the lower end of right radius, initial encounter for closed fracture (principal); S09.90XA Unspecified injury of head, initial encounter; M25.511 Pain in right shoulder; W18.30XA Fall on same level, unspecified, initial encounter
CPT/HCPCS: 29125; 70450; 72125; 73030; 73090; 73110; 99284

== ENCOUNTER → 2022-10-30 10:37 | Outpatient (CLI) | payer MEDICARE, OTHER, SELFPAY ==
--- NOTE | 2022-10-30 11:21 | DI.MRI.S_ITS ---
BREAST MRI OF BOTH BREASTS: 10/30/2022 CLINICAL: Nipple Discharge. PROCEDURE: MR BREAST BI WO/W CON INDICATIONS: Nipple discharge TECHNIQUE: The patient was placed prone in a dedicated breast imaging coil. Precontrast axial STIR and 3D FLASH without fat saturation sequences were obtained. Both before and after bolus injection of contrast, sequential 1-minute axial 3D FLASH with fat saturation sequences for 3 time points, with subtraction images and maximum intensity projections (MIP's) generated. Delayed sagittal FLASH images with fat saturation were also obtained. Computer-aided detection, including computer algorithm analysis of MRI image data for lesion detection and characterization, pharmacokinetic analysis, with further physician review for interpretation, was performed. COMPARISON: None. FINDINGS: Image quality: Excellent. There is minimal background parenchymal enhancement. Right breast: No suspicious enhancement or mass lesions. Left breast: There is a 0.7 x 1.2 by 1.1 cm enhancing retroareolar mass. No other suspicious mass lesions or enhancement. Miscellaneous: No axillary adenopathy. No intramammary adenopathy. Limited visualization of the heart and mediastinum are grossly unremarkable. IMPRESSION: INCOMPLETE: NEEDS ADDITIONAL IMAGING EVALUATION 1. Enhancing mass lesion deep to the left nipple. Ultrasound is recommended to further characterize this finding. Additionally, the patient has not undergone mammographic examination since 2017. Mammographic examination is also recommended at that time. Electronically Signed By: Bobbi forman/:10/30/2022 14:13:41 letter sent: Additional Imaging Needed ACR BI-RADS Category 0: Incomplete [id number]
== END ==
PROVIDERS: PCP Family Medicine; Referring Provider Physician Assistant; Visit Provider Physician Assistant
DX: N63.42 Unspecified lump in left breast, subareolar (principal); N64.52 Nipple discharge
CPT/HCPCS: 77049; A9579

== ENCOUNTER → 2022-12-04 12:46 | Outpatient (CLI) | payer MEDICARE, OTHER, SELFPAY ==
--- NOTE | 2022-12-04 | DI.US.S_ITS ---
LIMITED ULTRASOUND OF LEFT BREAST, AXILLA, AND SUPRACLAVICULAR: 12/04/2022 CLINICAL: Left nipple discharge. Second look ultrasound. Comparison is made to exams dated: 10/30/2022 breast MRI - [facility], 10/04/2022 ultrasound, 10/04/2022 mammogram, and 03/07/2022 mammogram - [facility]. Color flow ultrasound of the left breast retroareolar, axilla, and supraclavicular regions was performed. Gagnon scale images of the real-time examination were reviewed. There is a 0.8 cm x 0.7 cm x 1 cm taller than wide irregular mass in the left breast central to the nipple in the retroareolar region. A fat plant between the mass and nipple is not evident on US or MRI. This irregular mass is of mixed echogenicity. Color flow imaging demonstrates that there is increased vascularity. This correlates with breast MRI findings and the nipple discharge. No significant abnormalities were seen sonographically in the left axilla. IMPRESSION: SUSPICIOUS OF MALIGNANCY The 0.8 cm x 0.7 cm x 1 cm taller than wide irregular mass arising from, or part of, the left nipple corresponds to the MRI finding, likely is the cause of bloody nipple discharge, and is suspicious of malignancy. A surgical consult is recommended. Percutaneous biopsy is likely to cause nipple or skin injury. Findings and recommendations were discussed with the patient in person by Dr. Alonzo at time of exam. This exam was interpreted at Station ID: [id number]. Electronically Signed By: Michelle gruber/:12/04/2022 14:03:57 letter sent: Clinical Evaluation Ultrasound BI-RADS: 4 Suspicious for malignancy
== END ==
PROVIDERS: PCP Physician Assistant; Referring Provider Physician Assistant; Visit Provider Physician Assistant
DX: R92.8 Other abnormal and inconclusive findings on diagnostic imaging of breast (principal); N63.42 Unspecified lump in left breast, subareolar; N64.52 Nipple discharge
CPT/HCPCS: 76642

== ENCOUNTER 2023-03-18 10:25 | Day surgery (SDC) | payer MEDICARE, OTHER, SELFPAY ==
[2023-03-13 10:48] VITALS: BMI 48.0
[2023-03-18] VITALS (8 sets, daily range): BP systolic 138–175; BP diastolic 57–88; PULSE 65–85; RESP 12–18; TEMP 35.6–36.2; O2SAT 96–99; BMI 48.0
--- NOTE | 2023-03-18 | PATH_ITS ---
[facility] Accession Number: [id number] No. of containers..01 Tissue . 01 Material submitted: . RETRO AREOLAR - LEFT RETRO AREOLAR MASS . 01 Diagnosis: A. 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 Architectural patterns: Papillary, micropapillary, focally solid. 2. Nuclear grade: Low to intermediate. 3. Necrosis: Not identified. 4. Extent of DCIS: Present in 2 tissue slices on 1 slide (Block A1), with the largest microscopic extent of 8 mm. 5. Calcifications: Present in association with DCIS. 6. Resection margins: Positive (cauterized/at ink) in A1. 7. Estrogen receptor status: Positive (more than 99% neoplastic cells staining, staining intensity: Strong). 8. No evidence of invasive carcinoma. [facility] 04/03/2023 1611 Local . 01 Comment: Dr. Holliday reviewed this case and concurs with the diagnosis. . 01 Electronically signed: Grady Stokes MD, Pathologist NPI- [id number] . 01 Gross description: . The specimen is received in formalin labeled with the patient's name, , and left retroareolar mass consists of a single pink-white nodule measuring 1.0 x 0.9 x 0.6 cm. The tissue is inked blue and bisected to reveal a white-roe homogeneous unremarkable cut surface. Also received in the container is a fragment of yellow lobulated fatty tissue measuring 1.5 x 0.9 x 0.3 cm (inked black). The tissue weighs less than 0.1 grams. The nodule is entirely submitted in cassette A1, and the fragment of fatty tissue entirely submitted in cassette A2. ([id number]) /MRV 03/20/2023 1543 Local . 01 Microscopic: . CK5/6 and ER are performed on block A1 in order to evaluate the atypical neoplastic intraductal proliferation, with appropriately staining external controls, and with deeper levels examined. The areas of interest demonstrate the following immunoprofile: . CK5/6: Lost within the intraductal proliferation, present at the periphery and highlighting the fibrovascular cores. Smooth muscle myosin: Lost within the intraductal proliferation, present at the periphery and highlighting the fibrovascular cores. . Predictive marker immunohistochemical studies are performed on block A1 with the DCIS showing the following results: . Estrogen receptor (SP1): Positive (99% neoplastic cells staining; staining intensity: Strong). . Cold ischemic time is <5 minutes. The scoring criteria for breast biomarkers by immunohistochemistry is based on the ASCO/CAP guidelines (Guadalupe AC et al J Clin Oncol 2018: 2017Feb 17;36(20):7346-4623 and Angella ME et al, Arch Pathol Lab Med 2009;134(6):907-22). Deparaffinized sections of formalin fixed tissue (along with appropriate positive controls) are incubated with the above antibody(s). Using the automated [place] stainer, tissue is incubated with the designated antibody which is then localized by a non-biotin, dual polymer detection system. The external controls are reviewed for appropriate reactivity and found to be adequate. Results on the target cell population are indicated above. These tests have not been validated on decalcified tissue. This test was developed and its performance characteristics determined by [facility]. It has not been cleared or approved by the U.S. Food and Drug Administration. The FDA has determined that such clearance or approval is not necessary. This test is used for clinical purposes. It should not be regarded as investigational or for research. . 01 Pathologist provided ICD-10: D05.10 . 01 CPT . 670955, [id number], C04806, [id number] Specimen Comment: A courtesy copy of this report has been sent to [phone] Performed at: 01 [facility] [address] [place] [address] [address] [facility], [place], [place] [id number] MD Hector Duran MD Phone: [phone]
--- NOTE | 2023-03-18 11:28 | SUR.PREOP ---
Blood sugar in pre-op 154; notified Anesthesia; no further orders. Patient asymptomatic. Will continue to monitor.
[2023-03-18] MEDS: LACTATED RINGERS 1,000 ML 84 ML IV (11:53)
--- NOTE | 2023-03-18 12:46 | PM.HP.1 ---
History of Present Illness History of Present Illness Date Patient Seen: 03/18/23 Time Patient Seen: 12:46 Chief complaint: [facility] Narrative: Ritesh is an 82-year-old woman with left bloody nipple discharge. She would an MRI at [facility] which showed a retroareolar areolar mass that they were not able the biopsy because of its proximity to skin. [facility] Medical History (Updated 03/13/23 @ 08:56 by Lillie Quiñonez RN) Anxiety with depression Arthritis Asthma CAD (coronary artery disease) Cervical disc disease with myelopathy Chronic lower back pain Diabetes type 2, controlled Diabetic peripheral neuropathy Epigastric pain Glaucoma (05/13/12) Gout History of COVID-19 (01/2023) History of melanoma (2016) HLD (hyperlipidemia) HTN (hypertension) Lymphedema Osteopenia (05/13/12) Pancreatitis, acute Rheumatic fever Sciatica of left side Sinus drainage Sleep apnea Surgical History (Updated 03/13/23 @ 10:48 by Lillie Quiñonez RN) History of carpal tunnel release History of hysterectomy History of surgery (2018) History of total left knee replacement (2010) History of total right knee replacement (2006) Hx of arthroscopy of left knee Hx of arthroscopy of right knee Hx of bilateral cataract extraction Hx of elbow surgery Hx of left breast biopsy Hx of sinus surgery Social History household members: spouse lives independently: Yes Smoking Status: Never smoker alcohol intake: current Meds Home Medications and Allergies Home Medications Medication Instructions Recorded Confirmed Type CPAP: CPAP/PAP Nasal Mask HS ##0 05/13/12 12/18/22 History acetaminophen 650 mg 650 mg PO Q12H ##0 05/13/12 03/18/23 History tablet,extended release albuterol sulfate 90 mcg/actuation 1 - 2 puff INH Q4HP ##0 05/13/12 03/18/23 History aerosol inhaler (Ventolin HFA) latanoprost 0.005 % eye drops 1 drp OPHTH HS ##0 05/13/12 03/18/23 History (Xalatan) omega 4-mvv-gcd-fish oil 1,000 mg 2 cap PO DAILY ##0 05/13/12 03/18/23 History (120 mg-180 mg) capsule (Fish Oil) nrjlxrhk-ytwtdih-kcwa-lutein tablet 1 tab PO DAILY ##0 05/14/12 03/18/23 History allopurinol 300 mg tablet 300 mg PO DAILY 12/18/22 03/18/23 History amlodipine 2.5 mg tablet 2.5 mg PO DAILY 12/18/22 03/18/23 History aspirin 81 mg tablet,delayed 81 mg PO DAILY 12/18/22 03/18/23 History release atorvastatin 40 mg tablet 40 mg PO DAILY 12/18/22 03/18/23 History bupropion HCl 150 mg tablet,12 hr 150 mg PO TID 12/18/22 03/18/23 History sustained-release (Wellbutrin SR) cetirizine 10 mg tablet (Zyrtec) 10 mg PO DAILY 12/18/22 03/18/23 History furosemide 40 mg tablet 40 mg PO BID 12/18/22 03/18/23 History insulin aspart U-100 100 unit/mL 10 unit SUBCUT TID 12/18/22 03/18/23 History (3 mL) subcutaneous pen (Novolog FlexPen U-100 Insulin aspart) insulin glargine 100 unit/mL (3 20 unit SUBCUT QPM 12/18/22 03/18/23 History mL) subcutaneous pen (Lantus Solostar U-100 Insulin) losartan 100 mg tablet 100 mg PO DAILY 12/18/22 03/18/23 History methocarbamol 500 mg tablet 500 mg PO Q8H PRN Muscle Spasm 12/18/22 03/18/23 History metoprolol succinate 50 mg 50 mg PO DAILY 12/18/22 03/18/23 History tablet,extended release 24 hr montelukast 10 mg tablet 10 mg PO DAILY 12/18/22 03/18/23 History (Singulair) omeprazole 20 mg capsule,delayed 20 mg PO DAILY 12/18/22 03/18/23 History release potassium chloride 20 mEq 20 meq PO BID 12/18/22 03/18/23 History tablet,extended release Fluticasone Propionate (FLONASE) 1 spray intranasal QPM 03/13/23 03/18/23 History gabapentin 100 mg capsule 100 mg PO BID 03/13/23 03/18/23 History Allergies Allergy/AdvReac Type Severity Reaction Status Date / Time beclomethasone Allergy Mild RASH Verified 03/18/23 11:43 codeine AdvReac Intermediate HALLUCINATI Verified 03/18/23 11:43 ON colchicine [COLCHICINE] AdvReac Intermediate DIARRHEA Verified 03/18/23 11:43 morphine AdvReac Intermediate HALLUCINATI Verified 03/18/23 11:43 ONS oxycodone AdvReac Intermediate HALLUCINATI Verified 03/18/23 11:43 ONS hydrocodone AdvReac Mild NAUSEA, Verified 03/18/23 11:43 DIZZY pentazocine AdvReac Mild ALTERED Verified 03/18/23 11:43 MENTAL STATUS Sulfa (Sulfonamide AdvReac Mild HALLUCINATI Verified 03/18/23 11:43 Antibiotics) ON Any of the narcotics Allergy Pt does Uncoded 03/18/23 11:43 not list reaction Exam Vital Signs (past 8 hours): - 03/18/23 11:40 Temperature 96.0 F L Pulse Rate 65 Respiratory Rate 18 Blood Pressure 145/63 H Pulse Oximetry 97 Oxygen Delivery Method Room Air Oxygen Delivery Method Room Air Narrative Exam Narrative: There is no palpable mass of the left breast No nipple retraction Assessment & Plan Assessment and plan (1) Left breast mass: Qualifiers: Breast mass location: subareolar Qualified Code(s): N63.42 - Unspecified lump in left breast, subareolar Status: Acute Plan We reviewed the risks and benefits of excisional biopsy of any retroareolar mass. We will perform an incision along the inferior areolar border.
--- NOTE | 2023-03-18 13:20 | SUR.OPER ---
Supine on padded OR bed, head on pillow, arms secured on padded arm boards at <90 degrees abduction, legs uncrossed, safety belt at thigh, tape over blanket over lower legs.
[2023-03-18] MEDS: BUPIVACAINE 0.5% (PF) 30 ML VIAL INJ (13:25)
--- NOTE | 2023-03-18 13:51 | PM.OP.1 ---
Operative Date/Time/Diagnoses Date of procedure: 03/18/23 Time of procedure: 13:51 Pre-op diagnosis: Left breast mass Post-op diagnosis: same Procedure & Clinicians Procedure: Excisional biopsy of left breast mass Same procedure as scheduled: Yes Surgeon: Abelardo Mohr Orthopaedic Nurse: Yoan Shelley Operative Notes Procedure in detail: The patient was brought to the operating room and general anesthesia was induced. The left breast was prepped and draped in the usual fashion and a time-out was performed. We made a 4 cm curvilinear incision along the inferior areolar border. We raised a flap of areolar skin and dissected down to the center of the areola where the palpable mass was located. The mass was about 8 mm and appeared to be cystic in nature abutting the dermis filled with old blood. In the process of resecting it a small johnathan was made in the skin of the central areola. We took a little bit of extra tissue with the mass. Hemostasis was achieved with cautery and a single 3-0 Vicryl stitch into the breast tissue. Once there was hemostasis we closed the incision in layers using multiple interrupted 3-0 Vicryl dermal sutures followed by a running 4-0 Monocryl subcuticular closure. A single 3-0 Vicryl buried stitch was used to close the skin in the central areola. Steri-Strips and fluffs were applied along with a breast binder. EBL: 10 mL Specimen: Central retroareolar mass Post-operative Condition: stable Disposition: PACU
[2023-03-18] MEDS: TRAMADOL 50 MG TABLET PO (14:29)
== END 2023-03-18 14:50 | disposition home or self-care (01) ==
PROVIDERS: PCP Physician Assistant; Referring Provider Surgery; Visit Provider Surgery
PROC: (CPT 19301; principal; 2023-03-18 12:00)
DX: D05.12 Intraductal carcinoma in situ of left breast (principal); Z17.0 Estrogen receptor positive status [ER+]
CPT/HCPCS: 19120; 82962; J3010

== ENCOUNTER 2023-05-06 06:40 | Day surgery (SDC) | payer MEDICARE, OTHER, SELFPAY ==
[2023-04-29 17:06] VITALS: BMI 48.0
[2023-05-06] VITALS (9 sets, daily range): BP systolic 142–182; BP diastolic 68–103; PULSE 67–79; RESP 14–18; TEMP 36.1–36.6; O2SAT 94–100; BMI 48.5
--- NOTE | 2023-05-06 | PATH_ITS ---
[facility] Accession Number: [id number] No. of containers..01 Tissue . 01 Material submitted: . breast - LEFT BREAST . 01 Diagnosis: A. Left Breast, Excision: A minute focus of invasive (ductal) carcinoma, grade 1 of 3 (Pat combined histologic grade, total score 5), with the following features: 1. Tumor size (invasive component): 1.1 mm, by microscopic measurement, block A9. 2. Nuclear pleomorphism: Low. (1/3) 3. Mitotic rate: Low. (1/3) 4. Tubular differentiation: Little or none. (3/3) 5. Ductal carcinoma in situ (DCIS): i. Present, with the following features: - Nuclear grade: Low to intermediate. - Necrosis: Not identified. ii. Extent: Present on one slide (Block A9, corresponding to tissue slice 11) spanning approximately 6 mm. 6. Calcifications: Present in association with DCIS, in stroma adjacent to invasive carcinoma, and with benign tissue. 7. Lymphatic invasion: Not identified. 8. Resection margins: - Invasive carcinoma: Negative (more than 2 mm from all margins). - Ductal carcinoma in situ: Negative (more than 2 mm from all margins). 9. Prognostic markers: Estrogen receptor status: Positive (more than 95% tumor cells staining, staining intensity: Strong). Progesterone receptor status: Positive (more than 90% tumor cells staining, staining intensity: Moderate to strong). HER2: pending, results will be reported in an addendum. 10. Regional lymph node status: Not present in this case. 11. Additional findings: - Procedural site changes/suture granuloma with extensive foreign body giant cell reaction. - Focal atypical ductal hyperplasia seen in block A15. - Background usual ductal hyperplasia and columnar cell change/columnar cell hyperplasia. - Skin: No evidence of Paget disease or ulceration. - Nipple: Involved by invasive carcinoma and ductal carcinoma in situ. - Skeletal muscle and/or chest wall: Not identified. 12. Pathologic stage: pT1a . COMMENT: Within block A9, within the nipple areolar complex in the dermis, a small focus of invasive carcinoma (1.1 mm) is present adjacent to the DCIS that is growing along lactiferous ducts. The rest of the breast demonstrates extensive procedural site changes with one focus of ADH. . The prior biopsy was concurrently reviewed (case #[id number], 03/19/2023), and there is no change to the diagnosis. . Dr. Mohr's office is notified of the preliminary findings on this case (directly reported to ENRIQUE Brantley on 05/13/23 at 1:30 pm). MRV 05/13/2023 1405 Local . 01 Comment: Dr. Maddie Holliday reviewed block A9 and concurs with the diagnosis of invasive carcinoma. . 01 Electronically signed: . Coleen Stokes MD, Pathologist NPI- [id number] . 01 Gross description: . Received: In formalin, labeled with the patient's name, , and left breast. Specimen: Left oriented lumpectomy: Weight: 172 grams. Measurement: 12.4 cm medial to lateral, 8.3 cm superior to inferior, 4.2 cm anterior to posterior. Skin Ellipse: Present, measuring 12.7 x 5.9 cm, and everted nipple is present, measuring 1.3 x 1.1 cm. However, due to green ink on the cutaneous surface, measurement of the areola cannot be determined. A curvilinear possible scar is located on the inferior aspect of the nipple areolar complex measuring approximately 8.2 cm in length. No additional cutaneous lesions are identified. Wire: Absent. Margins: Oriented on the skin with a short suture designating superior and long suture designating lateral per the OP notes. The specimen is also received inked as follows: Cutaneous surface/anterior green, medial yellow, lateral orange, superior red, inferior blue, posterior black. The inking is reinforced at the bench. Sliced: From medial to lateral into 23 slices. Lesion: One lesion. Description: A firm, ill-defined nodule. Size: 1.3 x 0.9 x 0.8 cm. Slices Involved: 10 through 12. Biopsy Site: Presumed biopsy site changes are seen within slice 11, but not clip is grossly identified. Distance to Margins: 0.3 cm from the skin surface (located subadjacent to the nipple), 1.4 cm from the blue margin, and is widely free from all remaining margins. Other: The remaining cut surfaces are yellow to white fibroadipose tissue with fibrous tissue occupying approximately 10% of the cut surface. No additional lesions are identified. Fixation time: The specimen was removed on 05/06/2023, time not provided, cold ischemic time cannot be calculated, and total fixation time is approximately 34 hours. [employer] sections are submitted as follows: A1: Rep slice 1 perpendicular. A2: Rep slice 8 no lesion. A3: Rep slice 9 no lesion. A4-A5: Rep slice 10 with lesion. A6: Thin section of slice 11, lesion to nearest blue margin. A7-A12: Composite slice 11 to include lesion and area of biopsy site changes and nipple. A13: Rep slice 12 with lesion. A14: Rep slice 13 no lesion. A15: Rep slice 14 no lesion. A16: Rep slice 23 perpendicular. ([id number]) Additional sections are submitted as follows: A17-A18: Remaining skin for slice 9 (firm area in A17, possible additional nipple in A18). A19: Additional section from slice 10. ([id number]) /[facility] 05/08/2023 1618 Local . 01 Microscopic: . CK5/6 and ER are performed on blocks A15 and A6 in order to evaluate areas of intraductal proliferation for neoplasia. In block A6, there is no loss of CK5/6 and no overexpression of ER in support of usual ductal hyperplasia in this block. In block A15, there is focal overexpression of ER and relative loss of CK5/6 in support of evidence of clonal or neoplastic proliferation, which along the morphology, this focus likely represents atypical ductal hyperplasia. . A panel of immunostains is performed on block A9 in order to evaluate the focus of invasive carcinoma, with appropriately staining external controls. The focus shows the following: . P63: Lost, in support of invasive carcinoma. Smooth muscle myosin: Non-contributory (due to technical difficulties). E-cadherin: Retained, in support of ductal phenotype. Beta-Catenin: Retained, in support of ductal phenotype. . Predictive marker immunohistochemical studies are performed on block A9 with the invasive carcinoma showing the following results: . Estrogen receptor (SP1): Positive (more than 95% tumor cells staining, staining intensity: Strong). . Progesterone receptor (1E2): Positive (more than 90% tumor cells staining, staining intensity: Moderate to Strong). . Her2 (4B5): pending, results will be reported in an addendum. . Internal controls for ER and [place] are positive. Total fixation time: 34 hours. The scoring criteria for breast biomarkers by immunohistochemistry is based on the ASCO/CAP guidelines (Guadalupe AC et al, J Clin Oncol: 2018 Feb 17;36(20):7739-4646 and Angella ME et al, Arch Pathol Lab Med: 2009;134(6):907-22). Deparaffinized sections of formalin fixed tissue (along with appropriate positive controls) are incubated with the above antibody(s). Using the automated [place] stainer, tissue is incubated with the designated antibody which is then localized by a non-biotin, dual polymer detection system. The external controls are reviewed for appropriate reactivity and found to be adequate. Results on the target cell population are indicated above. These tests have not been validated on decalcified tissue. This test was developed and its performance characteristics determined by [employer]. It has not been cleared or approved by the U.S. Food and Drug Administration. The FDA has determined that such clearance or approval is not necessary. This test is used for clinical purposes. It should not be regarded as investigational or for research. . 01 Pathologist provided ICD-10: C50.919 . 01 CPT . 174781, B79483, L28201, 179520, 146959 Specimen Comment: A courtesy copy of this report has been sent to [phone] Performed at: 01 [facility] [address] [place] [address], [place], [place] [id number] MD Hector Duran MD Phone: [phone]
[2023-05-06] MEDS: LACTATED RINGERS 1,000 ML 42 ML IV (08:03)
--- NOTE | 2023-05-06 08:03 | P.HP_ITS ---
History of Present Illness History of Present Illness Date Patient Seen: 05/06/23 Time Patient Seen: 08:03 Chief complaint: Left Breast Biopsy/Lumpectomy Narrative: Ritesh is here for her left breast lumpectomy. Path came back with DCIS. We discussed the rationale for a left breast central lumpectomy with removal of the nipple areolar complex. [facility] Medical History Anxiety with depression Arthritis Asthma CAD (coronary artery disease) Cervical disc disease with myelopathy Chronic lower back pain Diabetes type 2, controlled Diabetic peripheral neuropathy Epigastric pain Glaucoma (05/13/12) Gout History of COVID-19 (01/2023) History of melanoma (2016) HLD (hyperlipidemia) HTN (hypertension) Lymphedema Osteopenia (05/13/12) Pancreatitis, acute Rheumatic fever Sciatica of left side Sinus drainage Sleep apnea Surgical History History of carpal tunnel release History of hysterectomy History of surgery (2018) History of total left knee replacement (2010) History of total right knee replacement (2006) Hx of arthroscopy of left knee Hx of arthroscopy of right knee Hx of bilateral cataract extraction Hx of elbow surgery Hx of left breast biopsy Hx of sinus surgery Social History household members: spouse lives independently: Yes Smoking Status: Never smoker alcohol intake: current Meds Home Medications and Allergies Home Medications Medication Instructions Recorded Confirmed Type CPAP: CPAP/PAP Nasal Mask HS ##0 05/13/12 03/31/23 History acetaminophen 650 mg 650 mg PO Q12H ##0 05/13/12 05/06/23 History tablet,extended release albuterol sulfate 90 mcg/actuation 1 - 2 puff INH Q4HP ##0 05/13/12 05/06/23 History aerosol inhaler (Ventolin HFA) latanoprost 0.005 % eye drops 1 drp OPHTH HS ##0 05/13/12 05/06/23 History (Xalatan) omega 4-lyn-bit-fish oil 1,000 mg 2 cap PO DAILY ##0 05/13/12 05/06/23 History (120 mg-180 mg) capsule (Fish Oil) mmgqwnzh-qmvebus-lgdd-lutein tablet 1 tab PO DAILY ##0 05/14/12 05/06/23 History allopurinol 300 mg tablet 300 mg PO DAILY 12/18/22 05/06/23 History amlodipine 2.5 mg tablet 2.5 mg PO DAILY 12/18/22 05/06/23 History aspirin 81 mg tablet,delayed 81 mg PO DAILY 12/18/22 05/06/23 History release atorvastatin 40 mg tablet 40 mg PO DAILY 12/18/22 05/06/23 History bupropion HCl 150 mg tablet,12 hr 150 mg PO TID 12/18/22 05/06/23 History sustained-release (Wellbutrin SR) cetirizine 10 mg tablet (Zyrtec) 10 mg PO DAILY 12/18/22 05/06/23 History furosemide 40 mg tablet 40 mg PO BID 12/18/22 05/06/23 History insulin aspart U-100 100 unit/mL 10 unit SUBCUT TID 12/18/22 05/06/23 History (3 mL) subcutaneous pen (Novolog FlexPen U-100 Insulin aspart) insulin glargine 100 unit/mL (3 20 unit SUBCUT QPM 12/18/22 05/06/23 History mL) subcutaneous pen (Lantus Solostar U-100 Insulin) losartan 100 mg tablet 100 mg PO DAILY 12/18/22 05/06/23 History methocarbamol 500 mg tablet 500 mg PO Q8H PRN Muscle Spasm 12/18/22 05/06/23 History metoprolol succinate 50 mg 50 mg PO DAILY 12/18/22 05/06/23 History tablet,extended release 24 hr montelukast 10 mg tablet 10 mg PO DAILY 12/18/22 05/06/23 History (Singulair) omeprazole 20 mg capsule,delayed 20 mg PO DAILY 12/18/22 05/06/23 History release potassium chloride 20 mEq 20 meq PO BID 12/18/22 05/06/23 History tablet,extended release Fluticasone Propionate (FLONASE) 1 spray intranasal QPM 03/13/23 05/06/23 History gabapentin 100 mg capsule 100 mg PO BID 03/13/23 05/06/23 History Allergies Allergy/AdvReac Type Severity Reaction Status Date / Time beclomethasone Allergy Mild RASH Verified 05/06/23 07:27 codeine AdvReac Intermediate HALLUCINATI Verified 05/06/23 07:27 ON colchicine [COLCHICINE] AdvReac Intermediate DIARRHEA Verified 05/06/23 07:27 morphine AdvReac Intermediate HALLUCINATI Verified 05/06/23 07:27 ONS oxycodone AdvReac Intermediate HALLUCINATI Verified 05/06/23 07:27 ONS hydrocodone AdvReac Mild NAUSEA, Verified 05/06/23 07:27 DIZZY pentazocine AdvReac Mild ALTERED Verified 05/06/23 07:27 MENTAL STATUS Any of the narcotics Allergy Pt does Uncoded 05/06/23 07:27 not list reaction Exam Vital Signs (past 8 hours): - 05/06/23 07:35 Temperature 97.9 F Pulse Rate 67 Respiratory Rate 14 Blood Pressure 142/69 H Pulse Oximetry 94 Oxygen Delivery Method Room Air Oxygen Delivery Method Room Air Narrative Exam Narrative: Well healed left breast incision No lymphadenopathy Assessment & Plan Assessment and plan (1) Left breast mass: Qualifiers: Breast mass location: subareolar Qualified Code(s): N63.42 - Unspecified lump in left breast, subareolar Status: Acute Plan We reviewed the risks and benefits of left breast lumpectomy and she would like to proceed.
[2023-05-06] MEDS: ACETAMINOPHEN IV 1,000 MG/100 ML VIAL 400 MG IV (08:34)
--- NOTE | 2023-05-06 09:16 | P.OP_ITS ---
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 The path came back with DCIS. No invasive cancer was identified. She was consented for a lumpectomy. The patient was brought to the operating room and placed on the table supine position. No antibiotic was indicated. General anesthesia was induced. The left breast was prepped and draped in the usual fashion and a time-out was performed. After injecting local anesthetic we made an elliptical incision a roughly 12 cm x 4 cm to resect the entire nipple areolar complex. Hemostasis w as obtained with cautery. A short stitch marked the superior aspect of the specimen and a long stitch marked the lateral aspect of the specimen. The specimen was marked with paint to orient it. We then examined the wound cavity and noted good hemostasis within wound cavity. We injected additional local into the dermis and then closed the incision in layers using multiple interrupted 3-0 Vicryl dermal sutures and a running 4-0 Monocryl subcuticular stitch. EBL: 10 mL Specimen: Left breast Post-operative Condition: stable Disposition: PACU
--- NOTE | 2023-05-06 09:34 | SUR.PHASEI ---
pt came to PACU with a blister to left eye. Anethesia provider states she thinks it is from the tape. Dr. Mohr informed and told patients daughter . RN will list this as an allergy. Pt aware and an ice pack placed on pt's eye. Pt denies pain and is understanding about eye injury.
[2023-05-06] MEDS: ONDANSETRON 4 MG ODT SL (10:49)
--- NOTE | 2023-05-15 16:39 | PM.PN.1 ---
Subjective Subjective Interval history: I made a telephone call to Ritesh who was at home to inform her about path containing a small focus of invasive cancer. Because it was 1.1 mm I recommended no further action was needed. She understands and agrees with the plan. Exam Vital Signs (past 8 hours): Oxygen Delivery Method Room Air Oxygen Flow Rate 5 PFSH Medical History Anxiety with depression Arthritis Asthma CAD (coronary artery disease) Cervical disc disease with myelopathy Chronic lower back pain Diabetes type 2, controlled Diabetic peripheral neuropathy Epigastric pain Glaucoma (05/13/12) Gout History of COVID-19 (01/2023) History of melanoma (2016) HLD (hyperlipidemia) HTN (hypertension) Lymphedema Osteopenia (05/13/12) Pancreatitis, acute Rheumatic fever Sciatica of left side Sinus drainage Sleep apnea Surgical History History of carpal tunnel release History of hysterectomy History of surgery (2018) History of total left knee replacement (2010) History of total right knee replacement (2006) Hx of arthroscopy of left knee Hx of arthroscopy of right knee Hx of bilateral cataract extraction Hx of elbow surgery Hx of left breast biopsy Hx of sinus surgery Social History household members: spouse lives independently: Yes Smoking Status: Never smoker alcohol intake: current
== END 2023-05-06 11:07 | disposition home or self-care (01) ==
PROVIDERS: PCP Physician Assistant; Referring Provider Surgery; Visit Provider Surgery
PROC: (CPT 19301; principal; 2023-05-06 08:00)
DX: C50.912 Malignant neoplasm of unspecified site of left female breast (principal); Z17.0 Estrogen receptor positive status [ER+]
CPT/HCPCS: 19120; 82962; J0131; J0330; J1100; J1170; J2405; J2704

== ENCOUNTER → 2024-04-01 13:35 | Outpatient (CLI) | payer MEDICARE, OTHER, SELFPAY ==
--- NOTE | 2024-04-01 13:37 | DI.ECHO.S_ITS ---
[facility] : : [address] : : [place] : : [id number] : : Phone: [phone] Echocardiogram Report + + :Name: ELDER FREEDMAN Study Date: 04/01/2024 Height: 64 in : :[facility] ReadingLocation: Weight: 283 lb : : Gender: Female BSA: 2.3 m2 : :: 1940 Age: 83 yrs BP: 167/77 mmHg: :Reason For Study: CONGESTIVE HEART FAILURE : :Ordering Physician: JOSÉ MIGUEL, : :ADELAIDA Christian Performed By: Marimar Avelar : :Referring: ADELAIDA VALDEZ : + + Interpretation Summary 1. There is a technically difficult study secondary to poor visualization of the endocardium and lack of echo contrast utilization. 2. The left ventricular contractility is mildly compromised. Estimated ejection fraction is approximate 45 to 50% with lateral wall hypokinesis. Mild concentric LVH. Impaired relaxation. 3. The right ventricle contractility appears to be normal. 4. Mild biatrial enlargement. All other cardiac chambers are of normal size. 5. No significant valvular abnormalities noted. 6. No obvious intracardiac shunts. 7. No obvious intracardiac masses nor thrombi. 8. No hemodynamically significant pericardial effusion. 9. Low right-sided filling pressures. Conclusion: Mildly compromised left ventricular systolic function with no significant valvular abnormalities. When compared with previous echocardiogram, no significant changes have occurred. Procedure: A two-dimensional transthoracic echocardiogram with color flow and Doppler was performed. The study quality was technically adequate. Comparison is made with the echocardiogram of 05/19/2019. The patient was in sinus rhythm with heart rates between 75-85 bpm during the exam. Left Ventricle: The left ventricle is normal in size. There is mild concentric left ventricular hypertrophy. The ejection fraction is estimated to be 45-50%. There are regional wall motion abnormalities as specified. Right Ventricle: The right ventricle is normal in size and function. Atria: The left atrium is borderline dilated. The right atrium is borderline dilated. There is no Doppler evidence for an interatrial shunt. Mitral Valve: The mitral valve is normal in structure and function. The mitral valve mean gradient is 3.0 mmHg. There is mild mitral regurgitation. Aortic Valve: The aortic valve is trileaflet. The aortic valve opens well. There is no aortic valve stenosis. There is trace aortic regurgitation. Tricuspid Valve: The tricuspid valve is normal in structure and function. There is trace tricuspid regurgitation. Pulmonary artery pressures cannot be estimated because of the lack of a measurable TR jet velocity. Pulmonic Valve: The pulmonic valve leaflets are thin and pliable; valve motion is normal. There is trace pulmonic regurgitation. Great Vessels: The aortic root is normal size. The dimensions of the ascending aorta are normal. The IVC is of normal diameter and collapses greater than 50% with a sniff. This suggests a low right atrial pressure of 3 mm Hg. Pericardium/ Pleura There is a trivial pericardial effusion noted. There is no pleural effusion. MMode/2D Measurements & Calculations LVIDd: 5.6 cm LVOT diam: 2.1 cm LVIDs: 4.1 cm Ao root diam: 3.5 cm FS: 26.5 % asc Aorta Diam: 3.4 cm IVSd: 1.1 cm Ao Arch Diam (Prox Trans): 2.6 cm LVPWd: 1.1 cm LV mayen. diameter/BSA (cm/m^2): 2.5 LV sys. diameter/BSA (cm/m^2): 1.8 LA A2 area: 25.0 cm2 RA long axis: 5.6 cm LA A4 area: 30.2 cm2 RA area: 21.8 cm2 LA length (vol): 6.7 cm RA vol: 71.6 ml LA vol: 94.9 ml RA : 31.6 ml/m2 LA vol index: 41.9 ml/m2 IVC diam: 1.5 cm RVD1 (basal): 3.9 cm RVD2 (mid): 3.3 cm TAPSE: 2.5 cm Doppler Measurements & Calculations Ao V2 max: 165.6 cm/sec LVOT Max Osmar: 94.2 cm/sec Ao V2 mean: 122.6 cm/sec LV V1 max P.5 mmHg Ao max P.0 mmHg LV V1 VTI: 22.5 cm Ao mean P.5 mmHg EDDIE(I,D): 2.0 cm2 Ao V2 VTI: 38.8 cm EDDIE(V,D): 2.0 cm2 sev ratio: 0.58 EDDIE indexed to BSA (cm^2/m^2): 0.90 MV E max osmar: 100.4 cm/sec PA V2 max: 106.8 cm/sec MV A max osmar: 100.8 cm/sec PA V2 mean: 75.5 cm/sec MV E/A: 1.00 PA mean P.5 mmHg Med Peak E' Osmar: 7.9 cm/sec PA pr(Accel): 46.5 mmHg E/E' med: 12.7 Lat Peak E' Osmar: 9.3 cm/sec E/E' lat: 10.8 E/e' average: 11.8 MV dec time: 0.18 sec MVA(VTI): 2.3 cm2 MV V2 mean: 80.0 cm/sec SV(LVOT): 79.5 ml MV mean P.0 mmHg MV V2 VTI: 33.8 cm Reading Physician:
== END ==
PROVIDERS: PCP Physician Assistant; Referring Provider Physician Assistant; Visit Provider Physician Assistant
DX: I34.0 Nonrheumatic mitral (valve) insufficiency (principal); I50.9 Heart failure, unspecified
CPT/HCPCS: 93306